=== PATIENT | male | born 1970 | race Hispanic/Latino ===

== ENCOUNTER 2023-02-14 10:51 | Emergency (ER) | payer SELFPAY ==
[2023-02-14] MEDS ORDERED: HYDRALAZINE HCL 20 MG/ML VIAL ONE (11:51)
[2023-02-14 11:52] LABS: Absolute Lymphocytes (CBC) 1.8 K/uL (0.7-4.9); Hematocrit 45.3 % (39.6-49.0); Lymphocytes % 16.1 % (15.3-44.8); MCV 87.2 fL (80-100); MPV 7.8 fL (7.6-11.3); Platelets 257 thou/uL (152-406); RBC Red Blood Cell Count 5.19 M/uL (4.33-5.43)
--- NOTE | 2023-02-14 11:59 | RAD REPORT ---
EXAM DESCRIPTION: Daisy Single View02/14/2023 11:33 am CLINICAL HISTORY: MALAISE COMPARISON: No comparisons TECHNIQUE: Portable AP view of the chest. FINDINGS: The lungs are clear. No pneumothorax or effusion. The cardiomediastinal contours are unrem arkable. IMPRESSION: No acute cardiopulmonary process.
[2023-02-14 12:03] LABS: Bilirubin Direct 0.2 mg/dL (0-0.2); Bilirubin Indirect, Calculated 0.5 mg/dL (0.2-0.8); Bilirubin Total 0.7 mg/dL (0.2-1.0); Magnesium 2.1 mg/dL (1.6-2.4); Potassium 4.2 mEq/L (3.5-5.1); Protein, Total 7.7 g/dL (6.4-8.2); Troponin High Sensitivity 4.2 pg/mL (<58.9)
[2023-02-14] MEDS ORDERED: MECLIZINE HCL 12.5 MG TAB ONE (12:30)
--- NOTE | 2023-02-14 12:48 | RAD REPORT ---
EXAM DESCRIPTION: CT - Head Brain Wo Cont - 02/14/2023 12:36 pm CLINICAL HISTORY: Dizziness COMPARISON: none TECHNIQUE: Computed axial tomography of the head was obtained. IV contrast was not requested. All CT scans are performed using dose optimization technique as appropriate and may include automated exposure control or mA/KV adjustment according to patient size. FINDINGS: An intracranial bleed is not seen The ventricles are normal in caliber No significant hypodense areas within the brain visualized No extra-axial fluid collection is noted. Fluid within the sinuses/ mastoids is not seen IMPRESSION: No acute intracranial abnormality is seen If patient's symptoms persist MRI of the brain would be recommended
--- NOTE | 2023-02-14 13:07 | ER ---
Nurse's Notes [facility] Name: Tyson Hou Age: 52 yrs Sex: Male : 1970 Arrival Date: 02/14/2023 Time: 10:51 Bed 6 Private MD: Diagnosis: Essential (primary) hypertension;Dizziness and giddiness Presentation: 02/14 11:07 Chief complaint: Patient states: woke up weak, dizzy, and BP was in the 180s at home eh3 around 6am, took one 5mg amlodipine at home. Coronavirus screen: Vaccine status: Patient reports receiving the 2nd dose of the covid vaccine. Ebola Screen: No symptoms or risks identified at this time. 11:07 Method Of Arrival: Wheelchair eh3 11:07 Acuity: MIGUELITO 2 eh3 11:36 Initial Sepsis Screen: Does the patient meet any 2 criteria? No. Patient's initial rs5 sepsis screen is negative. Does the patient have a suspected source of infection? No. Patient's initial sepsis screen is negative. Risk Assessment: Do you want to hurt yourself or someone else? Patient reports no desire to harm self or others. Onset of symptoms was February 14, 2023. Historical: - Allergies: 11:35 No Known Allergies; rs5 - PMHx: 12:03 hypertension; rs5 - Immunization history:: Adult Immunizations unknown. - Social history:: Smoking status: Patient/guardian denies using. Screenin:33 [facility] ED Fall Risk Assessment (Adult) History of falling in the last 3 months, rs5 including since admission No falls in past 3 months (0 pts). Abuse screen: Denies threats or abuse. Nutritional screening: No deficits noted. Tuberculosis screening: No symptoms or risk factors identified. Assessment: 11:31 General: Appears in no apparent distress. comfortable, Behavior is calm, cooperative. rs5 Pain: Denies pain. Neuro: Level of Consciousness is awake, alert, obeys commands, Oriented to person, place, time, situation. Cardiovascular: Heart tones S1 S2. Respiratory: Airway is patent Respiratory effort is even, unlabored, Respiratory pattern is regular, symmetrical. GI: Abdomen is round non-distended, Bowel sounds present X 4 quads. Abd is soft and non tender. : No signs and/or symptoms were reported regarding the genitourinary system. EENT: No signs and/or symptoms were reported regarding the EENT system. Derm: Skin is dry, Skin is normal, Skin temperature is warm. Musculoskeletal: Range of motion: intact in all extremities. 11:31 Neuro: Tax Manager Public are equal bilaterally Moves all extremities. . Gait is steady, Speech is rs5 normal, Facial symmetry appears normal, Pupils are PERRLA, Intact Reports dizziness, since 0600 weakness general. 12:22 Reassessment: Patient is alert, oriented x 3, equal unlabored respirations, skin rs5 warm/dry/pink. 12:50 Reassessment: Patient is alert, oriented x 3, equal unlabored respirations, skin rs5 warm/dry/pink. Pt reports dizziness has improved. Vital Signs: 11:07 BP 180 / 96; Pulse 63; Resp 16; Temp 98(O); Pulse Ox 97% on R/A; Weight 94.35 kg; eh3 Height 5 ft. 11 in. ; 11:48 BP 149 / 102; Pulse 65; rs5 11:56 BP 137 / 92; Pulse 65; Pulse Ox 97% on R/A; rs5 12:22 BP 136 / 83; Pulse 68; Resp 17; Pulse Ox 98% on R/A; rs5 13:00 BP 152 / 98; Pulse 65; Resp 16 S; Pulse Ox 98% on R/A; cm10 11:07 Body Mass Index 29.01 (94.35 kg, 180.34 cm) 3 NIH Stroke Scale Scores: 11:40 NIHSS Score: 0 [facility] ED Course: 10:52 Patient arrived in ED. rg4 10:55 Brandy Mcdermott FNP [facility] 7 10:55 Jigar Huerta DO is Attending Physician. 7 11:10 Triage completed. 3 11:13 Walt Finch, RN is Primary Nurse. rs5 11:25 Initial lab(s) drawn, by me, sent to lab. Inserted saline lock: 20 gauge in right aa5 antecubital area, using aseptic technique. Blood collected. 11:33 Arm band placed on left wrist. rs5 11:33 Patient has correct armband on for positive identification. Bed in low position. Call rs5 light in reach. Side rails up X 1. 11:34 XRAY Chest (1 view) In Process Unspecified. EDMS 12:38 CT Head Brain wo Cont In Process Unspecified. EDMS 13:16 No provider procedures requiring assistance completed. IV discontinued, intact, cm10 bleeding controlled, No redness/swelling at site. Pressure dressing applied. 13:17 Provided Education on: N/A. cm10 Administered Medications: 11:47 Drug: hydrALAZINE IVP 10 mg Route: IVP; Site: right antecubital; rs5 12:22 Drug: Meclizine PO 25 mg Route: PO; rs5 Medication: 13:17 VIS not applicable for this client. cm10 Outcome: 13:06 Discharge ordered by MD. serrano 13:17 Discharged to home ambulatory, with family. cm10 13:17 Condition: good 13:17 Discharge instructions given to patient, family, Instructed on discharge instructions, follow up and referral plans. medication usage, Demonstrated understanding of instructions, follow-up care, medications, Prescriptions given X 1. 13:17 Patient left the ED. cm10 NIH Stroke Scale - NIH Stroke Score Date: 02/14/2023 Time: 11:40 Total Score = 0 10. Dysarthria (speech clarity - read or repeat words) - 0(Normal) 11. Extinction and Inattention (visual/tactile/auditory/spatial/personal) - 0(No abnormality) 1a. Level of Consciousness (LOC) - 0(Alert) 1b. Level of Consciousness (LOC) (Month \T\ Age) - 0(Both) 1c. LOC Commands (Open \T\ Closes Eyes/Heel Stiffener) - 0(Both) 2. Best Gaze (Lateral Gaze Paresis) - 0(Normal) 3. Visual Field Loss - 0(No visual loss) 4. Facial Palsy - 0(Normal) 5a. Left Arm: Motor (10-second hold) - 0(No drift) 5b. Right Arm: Motor (10-second hold) - 0(No drift) 6a. Left Leg: Motor (5-second hold - always test supine) - 0(No drift) 6b. Right Leg: Motor (5-second hold - always test supine) - 0(No drift) 7. Limb Ataxia (finger/nose \T\ heel/murray - test with eyes open) - 0(Absent) 8. Sensory Loss (pinprick arms/legs/face) - 0(Normal) 9. Best Language: Aphasia (description/naming/reading) - 0(No aphasia) Initials: jh7 Signatures: Dispatcher [employer] EDVilma Connell, RN RN aa5 Jossie Man rg4 Meme Brown, RN RN 3 Brandy Mcdermott, LACE INSPECTOR LACE INSPECTOR jh7 Walt Finch RN RN rs5 Alicia Becker RN RN cm10 Corrections: (The following items were deleted from the chart) 11:48 11:47 hydrALAZINE IVP 10 mg IVP in left antecubital rs5 rs5 11:54 11:31 Neuro: Level of Consciousness is awake, alert, obeys commands, Oriented aa5 to person, place, time, situation, rs5 11:55 11:31 Neuro: Level of Consciousness is awake, alert, obeys commands, Oriented aa5 to person, place, time, situation, aa5
--- NOTE | 2023-02-14 13:07 | EDPHYS ---
Physician Documentation [facility] Name: Tyson Hou Age: 52 yrs Sex: Male : 1970 Arrival Date: 02/14/2023 Time: 10:51 Bed 6 Private MD: ED Physician Jigar Hureta HPI: 02/14 11:40 This 52 yrs old Male presents to ER via Wheelchair with complaints of High jh7 Blood Pressure. 11:40 The patient has elevated blood pressure and discovered this at home, with a home jh7 device. Onset: The symptoms/episode began/occurred acutely. Associated signs and symptoms: Pertinent positives: dizziness, nausea, vomiting, weakness, Pertinent negatives: chest pain, dyspnea, visual changes. Severity of symptoms: At its worst the blood pressure was 185 mm Hg. 52-year-old male presents to the ER complaining of high blood pressure, low heart rate, dizziness, nausea, and weakness. Reports that he has a history of high blood pressure but thought that he only needed to take amlodipine as needed. States that he felt bad when he woke up, noticed his blood pressure was high, and took one 5 mg amlodipine tablet.. Historical: - Allergies: 11:35 No Known Allergies; rs5 - PMHx: 12:03 hypertension; rs5 - Immunization history:: Adult Immunizations unknown. - Social history:: Smoking status: Patient/guardian denies using. ROS: 11:40 Eyes: Negative for injury, pain, redness, and discharge, Neck: Negative for injury, jh7 pain, and swelling, Cardiovascular: Negative for chest pain, palpitations, and edema, Respiratory: Negative for shortness of breath, cough, wheezing, and pleuritic chest pain, Abdomen/GI: Negative for abdominal pain, nausea, vomiting, diarrhea, and constipation, MS/Extremity: Negative for injury and deformity, Skin: Negative for injury, rash, and discoloration. 11:40 Constitutional: Positive for malaise, Negative for fever. 11:40 Neuro: Positive for dizziness, weakness, Negative for altered mental status, loss of consciousness, speech changes, syncope, tingling, visual changes. 11:40 All other systems are negative. Exam: 11:40 Head/Face: Normocephalic, atraumatic. Eyes: Pupils equal round and reactive to light, jh7 extra-ocular motions intact. Lids and lashes normal. Conjunctiva and sclera are non-icteric and not injected. Cornea within normal limits. Periorbital areas with no swelling, redness, or edema. ENT: Nares patent. No nasal discharge, no septal abnormalities noted. Tympanic membranes are normal and external auditory canals are clear. Oropharynx with no redness, swelling, or masses, exudates, or evidence of obstruction, uvula midline. Mucous membranes moist. Neck: Trachea midline, no thyromegaly or masses palpated, and no cervical lymphadenopathy. Supple, full range of motion without nuchal rigidity, or vertebral point tenderness. No Meningismus. Cardiovascular: Regular rate and rhythm with a normal S1 and S2. No gallops, murmurs, or rubs. Normal PMI, no JVD. No pulse deficits. Respiratory: Lungs have equal breath sounds bilaterally, clear to auscultation and percussion. No rales, rhonchi or wheezes noted. No increased work of breathing, no retractions or nasal flaring. Abdomen/GI: Soft, non-tender, with normal bowel sounds. No distension or tympany. No guarding or rebound. No evidence of tenderness throughout. Skin: Warm, dry with normal turgor. Normal color with no rashes, no lesions, and no evidence of cellulitis. MS/ Extremity: Pulses equal, no cyanosis. Neurovascular intact. Full, normal range of motion. Neuro: Awake and alert, GCS 15, oriented to person, place, time, and situation. Cranial nerves II-XII grossly intact. Motor strength 5/5 in all extremities. Sensory grossly intact. Cerebellar exam normal. 11:40 Constitutional: The patient appears alert, awake, restless, uncomfortable. Vital Signs: 11:07 BP 180 / 96; Pulse 63; Resp 16; Temp 98(O); Pulse Ox 97% on R/A; Weight 94.35 kg; eh3 Height 5 ft. 11 in. ; 11:48 BP 149 / 102; Pulse 65; rs5 11:56 BP 137 / 92; Pulse 65; Pulse Ox 97% on R/A; rs5 12:22 BP 136 / 83; Pulse 68; Resp 17; Pulse Ox 98% on R/A; rs5 13:00 BP 152 / 98; Pulse 65; Resp 16 S; Pulse Ox 98% on R/A; cm10 11:07 Body Mass Index 29.01 (94.35 kg, 180.34 cm) eh3 NIH Stroke Scale Scores: 11:40 NIHSS Score: 0 [facility] MDM: 10:55 Patient medically screened. [facility] 13:00 Differential diagnosis: hypertensive crisis, Malignant HTN, CVA, Vertigo, acute ND. [facility] Data interpreted: Pulse oximetry: is 98 %. Interpretation: normal. Data reviewed: vital signs, nurses notes, lab test result(s), EKG, radiologic studies, CT scan, plain films. I considered the following discharge prescriptions or medication management in the emergency department Medications were administered in the Emergency Department. See MAR. Independent interpretation of the following test(s) in the Emergency Department EKG: See my EKG interpretation above. Historians other than the Patient: Spouse/Significant Other: . Care significantly affected by the following chronic conditions: Hypertension. Counseling: I had a detailed discussion with the patient and/or guardian regarding: the historical points, exam findings, and any diagnostic results supporting the discharge/admit diagnosis, the presence of at least one elevated blood pressure reading (>120/80) during this emergency department visit, to return to the emergency department if symptoms worsen or persist or if there are any questions or concerns that arise at home. ED course: Informed the patient that he needed to take his blood pressure medicine daily and may need to have his blood pressure medicine adjusted by his PCP. He stated that he felt much better after the medication administration and return to the ER with any new concerning symptoms.. 02/14 11:10 Order name: Basic Metabolic Panel; Complete Time: 12: [facility] 02/14 11:10 Order name: CBC with Diff; Complete Time: 12: [facility] 02/14 11:10 Order name: LFT's; Complete Time: 12: [facility] 02/14 11:10 Order name: Magnesium; Complete Time: 12: [facility] 02/14 11:10 Order name: NT PRO-BNP; Complete Time: 12: [facility] 02/14 11:10 Order name: PT-INR; Complete Time: 12:02 [facility] 02/14 11:10 Order name: Troponin HS; Complete Time: 12:06 [facility] 02/14 11:10 Order name: XRAY Chest (1 view); Complete Time: 12: [facility] 02/14 12:12 Order name: CT Head Brain wo Cont; Complete Time: 12:54 [facility] 02/14 11:10 Order name: EKG; Complete Time: 11:10 [facility] 02/14 11:10 Order name: Cardiac monitoring; Complete Time: 11:38 [facility] 02/14 11:10 Order name: EKG - Nurse/Tech; Complete Time: 11:38 [facility] 02/14 11:10 Order name: IV Saline Lock; Complete Time: :38 [facility] 02/14 11:10 Order name: Labs collected and sent; Complete Time: :38 [facility] 02/14 11:10 Order name: O2 Per Protocol; Complete Time: : [facility] 02/14 11:10 Order name: O2 Sat Monitoring; Complete Time: :38 [facility] EC:26 Rate is 61 beats/min. Rhythm is regular. QRS [place] is Normal. RI interval is normal at [facility] 150 msec. QRS interval is normal at 88 msec. QT interval is normal at 424 msec. No Q waves. T waves are Normal. No ST changes noted. Clinical impression: Normal ECG. Administered Medications: 11:47 Drug: hydrALAZINE IVP 10 mg Route: IVP; Site: right antecubital; rs5 12:22 Drug: Meclizine PO 25 mg Route: PO; rs5 Disposition: 14:47 Co-signature as Attending Physician, Jigar ROMO was immediately available on-site ms3 in the Emergency Department for consultation in the care of the patient. Disposition Summary: 02/14/23 13:06 Discharge Ordered Location: Home [facility] Problem: new [facility] Symptoms: have improved [facility] Condition: Stable [facility] Diagnosis - Essential (primary) hypertension [facility] - Dizziness and giddiness [facility] Followup: [facility] - With: Private Physician - When: 2 - 3 days - Reason: Recheck today's complaints Discharge Instructions: - Discharge Summary Sheet [facility] - Dizziness [facility] - Hypertension, Adult [facility] - Managing Your Hypertension [facility] Forms: - Work release form rg4 - Family Work Release rg4 - Medication Reconciliation Form [facility] - Thank You Letter [facility] - Patient Portal Instructions [facility] Prescriptions: - amlodipine 5 mg Oral tablet - take 1 tablet by ORAL route daily; 30 tablet; Refills: 0, Product Selection [facility] Permitted NIH Stroke Scale - NIH Stroke Score Date: 02/14/2023 Time: 11:40 Total Score = 0 10. Dysarthria (speech clarity - read or repeat words) - 0(Normal) 11. Extinction and Inattention (visual/tactile/auditory/spatial/personal) - 0(No abnormality) 1a. Level of Consciousness (LOC) - 0(Alert) 1b. Level of Consciousness (LOC) (Month \T\ Age) - 0(Both) 1c. LOC Commands (Open \T\ Closes Eyes/Manager Medical) - 0(Both) 2. Best Gaze (Lateral Gaze Paresis) - 0(Normal) 3. Visual Field Loss - 0(No visual loss) 4. Facial Palsy - 0(Normal) 5a. Left Arm: Motor (10-second hold) - 0(No drift) 5b. Right Arm: Motor (10-second hold) - 0(No drift) 6a. Left Leg: Motor (5-second hold - always test supine) - 0(No drift) 6b. Right Leg: Motor (5-second hold - always test supine) - 0(No drift) 7. Limb Ataxia (finger/nose \T\ heel/murray - test with eyes open) - 0(Absent) 8. Sensory Loss (pinprick arms/legs/face) - 0(Normal) 9. Best Language: Aphasia (description/naming/reading) - 0(No aphasia) Initials: 7 Signatures: Dispatcher [employer] EDMS Jigar Huerta, DO ms3 Brandy Mcdermott, DEALER ACCOUNTS INVESTIGATOR DEALER ACCOUNTS INVESTIGATOR jh7 Walt Finch, IRMA RN rs5 Alicia Becker RN RN cm10
[2023-02-14 13:31] VITALS: TEMP 98
[2023-02-14 13:43] VITALS: O2SAT 98
[2023-02-14 13:44] VITALS: BP 152/98
--- NOTE | 2023-02-16 18:17 | EKG ---
Test Date: 2023-02-14 Test Time: 11:26:50 Radar Air Traffic Controller: [id number] MEASUREMENT RESULTS: Intervals: Rate: 61 CO: 150 QRSD: 88 QT: 424 QTc: 426 [place]: P: 34 CO: 150 QRS: 34 T: 25 INTERPRETIVE STATEMENTS: Normal sinus rhythm Normal ECG No previous ECG available for comparison Electronically Signed On 02-16-23 18:12:38 CDT by Santiago Magallanes
== END 2023-02-14 13:17 | disposition home or self-care (01) ==
LOC: ER 10:51
DX: I10 Essential (primary) hypertension (principal)
CPT/HCPCS: 36415; 70450; 71045; 80048; 80076; 83735; 83880; 84484; 85025; 85610; 93005; 96374; 99284; J0360; J8597